=== PATIENT | female | born 1975 | race Caucasian/White ===

== ENCOUNTER → 2017-02-10 | Outpatient (CLI) | payer BC ==
--- NOTE | 2017-02-10 16:43 | RAD ---
Right knee, 3 views, 02/10/2017: History: Fall, pain No fracture or dislocation is identified. No significant arthritic change is seen. There appears to be a moderate size joint effusion. IMPRESSION: 1. No acute bony abnormality is detected. 2. Moderate sized joint effusion. Right tibia and fibula, 2 views, 02/10/2017: No fracture or bony abnormality is detected. IMPRESSION: No significant abnormality is identified.
== END | disposition home or self-care (01) ==
LOC: DXRAD 15:53
PROVIDERS: ATTEND Nurse Practitioner Family
DX: M79.661 Pain in right lower leg (principal); W19.XXXA Unspecified fall, initial encounter; Y93.89 Activity, other specified; Y92.89 Other specified places as the place of occurrence of the external cause; Y99.8 Other external cause status
CPT/HCPCS: 73562; 73590